=== PATIENT | female | born 2000 | race Caucasian/White ===

== ENCOUNTER 2024-05-21 12:43 | Outpatient (CLI) | payer OTHER, SELFPAY ==
--- NOTE | ~2024-05-21 | MR_ITS ---
EXAMINATION: MR brain IAC wo/w con DATE: 05/21/2024 13:39 INDICATION: Hearing loss. TECHNIQUE: Magnetic resonance imaging (MRI) of the brain, brainstem, and internal auditory canals was performed without and with 17 mL MultiHance intravenous contrast. COMPARISON: None. FINDINGS: There is no intracranial hemorrhage, acute infarction, or abnormal intracranial mass lesion . The ventricles are normal in size. The orbits are normal. There is mild mucosal thickening in the p aranasal sinuses. The mastoid air cells are normal. The internal auditory canals and inner ears are n ormal. There is trace fluid in left tympanic cavity. IMPRESSION: 1. Normal brain. Reviewed, dictated and finalized at location A. IMPRESSION: 1. Normal brain.
== END 2024-05-21 12:44 | disposition home or self-care (01) ==
PROVIDERS: PCP Nurse Practitioner Family; Visit Provider Nurse Practitioner Family
DX: H90.3 Sensorineural hearing loss, bilateral (principal)
CPT/HCPCS: 70553; A9577

== ENCOUNTER 2024-07-25 08:51 | Emergency (ER) | payer OTHER, SELFPAY ==
[2024-07-25 09:11] VITALS: BP 125/75; PULSE 86; RESP 16; TEMP 36.9; O2SAT 100
[2024-07-25 09:12] VITALS: BP 125/75; PULSE 86; RESP 16; TEMP 36.9; O2SAT 100
--- NOTE | 2024-07-25 09:19 | ED.EYEPROB ---
HPI - Eye Problem General Chief complaint: Eye Problems Stated complaint: L EYE SWELLING/REDNESS Source: patient Mode of arrival: ambulatory Limitations: no limitations History of Present Illness HPI Narrative: 23 y/o female presented for c/o left eye redness and swelling after a stye drained this morning. States she had the stye for a few days but did not feel as much pain or swelling as after it broke open. Does not wear contact lenses. Denies vision changes, photophobia, foreign body. chief complaint: eye pain Related Data Allergies Allergy/AdvReac Type Severity Reaction Status Date / Time NSAIDS (Non-Steroidal Allergy Gastrointestinal Verified 07/25/24 09:12 Anti-Inflamma Upset Review of Systems Review of Systems: CONSTITUTIONAL: Denies body aches, fever, chills EYES:Endorses swelling, redness and pain to left eye; Denies visual changes, FB sensation, photophobia ENT: Denies rhinorrhea, congestion, sore throat, or otalgia. CARDIOVASCULAR: Denies chest pain, palpitations RESPIRATORY: Denies cough or dyspnea. SKIN: Denies rash MUSCULOSKELETAL: Denies back pain, joint pain, or myalgia. NEUROLOGIC: Denies headache All systems reviewed & are unremarkable except as noted in HPI and below PMFSH Comments At time of signature, I have reviewed and agree with nursing past medical, surgical, social and family history unless otherwise noted. Please see nursing chart for further information. There is no relevant family history pertinent to the presenting complaint Exam Narrative: GENERAL: Well-appearing HEAD: Normocephalic, atraumatic. EYES: Left upper eye lid swelling/redness c/w stye, no active drainage. No conjunctival injection, EOMI. Lid eversion shows no FB. ENT: Mucous membranes pink and moist. No rhinorrhea. TMs normal bilaterally. Throat normal. Uvula midline. CHEST: Clear to auscultation. HEART: Regular rate and rhythm. ABDOMEN: Soft, nontender, nondistended SKIN: Warm, dry, no rash. Normal skin turgor. NEURO: No focal deficits. Alert and oriented x3 PSYCH: Normal affect. Course Course Emergency Course: Patient is aware of diagnosis, understands and agrees to treatment plan. Anticipatory guidance given. Patient agrees to follow-up as directed and is aware of reasons to seek care at the emergency department. Portions of this record may have been created with voice recognition software Level of Care: Express Care Visit Vital Signs Vital signs: Vital Signs Temperature 98.5 F 07/25/24 09:11 Pulse Rate 86 07/25/24 09:11 Respiratory Rate 16 07/25/24 09:11 Blood Pressure 125/75 07/25/24 09:11 Pulse Oximetry 100 07/25/24 09:11 Temperature 98.5 F 07/25/24 09:12 Pulse Rate 86 07/25/24 09:12 Respiratory Rate 16 07/25/24 09:12 Blood Pressure 125/75 07/25/24 09:12 Pulse Oximetry 100 07/25/24 09:12 MDM - Eye Problem MDM Narrative Medical decision making narrative: Discussed physical exam findings c/w stye. Advised supportive measures but if symptoms worsen she will start abx. and signs/symptoms to go to the ER. Pt is appropriate for outpt treatment and f/u. Differential Diagnosis Differential diagnosis: Likely corneal abrasion, conjunctivitis, acute iritis, periorbital cellulitis and other Discharge Plan Discharge Clinical Impression: Pain and swelling of eyelid Patient Disposition: Home, Self-Care Condition: Stable Instructions: Antibiotic Form, Charly (ED) Additional Instructions: Apply warm, moist compresses on the affected area frequently (for 5 to 10 minutes three to five times per day) in order to help with drainage. Massage and gentle wiping of the affected eyelid after the warm compress can also help with drainage. You can use baby shampoo to wash the eye area Avoid wearing eye makeup or contact lenses Take Tylenol or ibuprofen as needed for pain Take medication as directed. If the lesion does not improve within one week, please follow up with an dairy supplies sales representative for further management. Go to the ER for worsening symptoms or concers Prescriptions: New cephalexin 500 mg capsule 500 mg PO Q12H 5 Days Qty: 10 0RF Follow-up/Referrals: PHYSICIAN,DIRECTOR OF DEMENTIA OPERATIONS [Primary Care Provider] - Time of Disposition: :25
== END 2024-07-25 09:27 | disposition home or self-care (01) ==
PROVIDERS: Emergency Provider Nurse Practitioner Family
DX: H02.844 Edema of left upper eyelid (principal); H57.12 Ocular pain, left eye
CPT/HCPCS: 99213; G0463